=== PATIENT | female | born 1980 | race Caucasian/White ===

== ENCOUNTER 2016-05-31 13:14 | Emergency (ER) | payer MEDICAID ==
[~2016-05-31] VITALS: Ht 160 cm; Wt 49.9 kg
[2016-05-31 13:40] VITALS: BP 118/76
[2016-05-31] MEDS ORDERED: Ketorolac 30mg Inj IM ONE (14:00)
[2016-05-31 14:13] LABS: APPEARANCE,URINE SLIGHTLY CLOUDY; KETONES,URINE NEGATIVE (NEGATIVE); LEUKOCYTE ESTERASE ,URINE 3+ (NEGATIVE); NITRITE,URINE POSITIVE (NEGATIVE); PH,URINE 6 (4.5-8.0); PROTEIN,URINE 2+ (NEGATIVE); UROBILINOGEN,URINE 1 MG/DL (0.0-1.0)
[2016-05-31 14:23] LABS: BACTERIA,URINE MANY /HPF; SQUAMOUS EPITHELIAL CELL,UR FEW /LPF (NONE/OCC); WBC,URINE 60-80 /HPF (0 - 2)
[2016-05-31] MEDS ORDERED: CEPHALEXIN500 MG ORAL (14:39)
[2016-05-31] MEDS ORDERED: IBUPROFEN600 MG ORAL (14:41)
[2016-05-31] MEDS ORDERED: TRAMADOL HCL50 MG ORAL (14:41)
[2016-05-31 14:45] VITALS: BP 118/76
[2016-05-31] MEDS ORDERED: NKM (14:47)
--- NOTE | 2016-05-31 21:45 | Emergency Room Report ---
History of Present Illness General Chief Complaint: Pain Source: Patient (JEREMIAH YOUSSEF) Present Illness HPI The patient is a 35 old female presenting with left flank pain which began 5 days prior. The patient also admits to dysuria and increased urinary frequency. The patient states that she has had a kidney stone in the past which feels similar to this. Pain is described as a 10 out of 10 sharp sensation of the left flank and lower midabdomen. Pain does not radiate. Pain worse with touch and movement. The patient denies other symptoms including nausea, vomiting, fever, chills (JEREMIAH YOUSSEF.Derik) Allergies: Coded Allergies: PENICILLINS (Verified Allergy, Severe, Shortness of Breath, 05/31/16) Patient History Past Medical History: see triage record Pertinent Family History: none Last Menstrual Period: last week Now: No Reviewed Nursing Documentation: PMH: Agreed, PSxH: Agreed (JEREMIAH YOUSSEF) Nursing Documentation-PMH Past Medical History: No History, Except For Hx Neurological Problems: Yes - migraines (JEREMIAH YOUSSEF) Review of Systems All Other Systems: negative except mentioned in HPI (JEREMIAH YOUSSEF) Physical Exam Vital Signs Date Time Temp Pulse Resp B/P Pulse Ox O2 Delivery O2 Flow Rate FiO2 05/31/16 13:39 98.8 107 18 118/76 98 Room Air Sp02 EP Interpretation: reviewed, normal General Appearance: alert, GCS 15, non-toxic, mild distress Head: normocephalic, atraumatic Eyes: bilateral eye PERRL, bilateral eye normal inspection ENT: hearing grossly normal, normal pharynx, no angioedema, normal voice Respiratory: chest non-tender, lungs clear, normal breath sounds, speaking full sentences Cardiovascular #1: regular rate, rhythm, no edema Gastrointestinal: normal bowel sounds, soft, non-distended, no guarding, no rebound, tenderness - suprapubic Genitourinary: normal inspection, CVA tenderness (L) Musculoskeletal: back normal, gait/station normal, normal range of motion, non- tender Neurologic: alert, oriented x3, responsive, motor strength/tone normal, sensory intact, speech normal Psychiatric: judgement/insight normal, memory normal, mood/affect normal, no suicidal/homicidal ideation Skin: normal color, no rash, warm/dry, well hydrated Lymphatic: no adenopathy (JEREMIAH YOUSSEF) Medical Decision Making PA Attestation Dr. Slater is my supervising physician. Patient management was discussed with my supervising physician (JEREMIAH YOUSSEF) Diagnostic Impression: Primary Impression: Pyelonephritis ER Course The patient is a 35 old female presenting with left flank pain which began 5 days prior. Differential diagnosis considered but not limited to: UTI, vaginitis, pyelonephritis, pyelonephrosis, PID, ectopic Physical exam: The patient is tachycardic and in mild distress. Afebrile Abdomen is soft. Normal bowel sounds. There is tenderness to palpation over suprapubic region only. There is left-sided CVA tenderness Urinalysis is consistent with urinary tract infection The patient is given Toradol for pain The patient is discharged home with a prescription for tramadol and Keflex. ER precautions are given (JEREMIAH YOUSSEF.AReddy) Labs Test 05/31/16 14:05 Urine Color Yellow Urine Appearance Slightly cloudy Urine pH 6 (4.5-8.0) Urine Specific [place] 1.020 (1.005-1.035) Urine Protein 2+ (NEGATIVE) Urine Glucose (UA) Negative (NEGATIVE) Urine Ketones Negative (NEGATIVE) Urine Occult Blood 4+ (NEGATIVE) Urine Nitrite Positive (NEGATIVE) Urine Bilirubin Negative (NEGATIVE) Urine Urobilinogen 1 MG/DL (0.0-1.0) Urine Leukocyte Esterase 3+ (NEGATIVE) Urine RBC 5-10 /HPF (0 - 2) Urine WBC 60-80 /HPF (0 - 2) Urine Squamous Epithelial Cells Few /LPF (NONE/OCC) Urine Bacteria Many /HPF (NONE) Urine HCG, Qualitative Negative (Bridger Slater M.D.) Last Vital Signs Date Time Temp Pulse Resp B/P Pulse Ox O2 Delivery O2 Flow Rate FiO2 05/31/16 14:45 98.8 18 118/76 98 Room Air 05/31/16 13:40 107 Status: improved (JEREMIAH YOUSSEF P.A.) Disposition: HOME, SELF-CARE Condition: Improved Scripts Tramadol Hcl* (ULTRAM*) 50 Mg Tablet 50 MG ORAL Q6H Y for For Pain, #10 TAB 0 Refills Prov: JEREMIAH YOUSSEF.A. 05/31/16 Ibuprofen* (MOTRIN*) 600 Mg Tablet 600 MG ORAL Q8H Y for For Pain, #30 TAB 0 Refills Prov: SHADEANJEREMIAH P.A. 05/31/16 Cephalexin* (KEFLEX*) 500 Mg Capsule 500 MG ORAL EVERY 6 HOURS, #28 CAP Prov: JEREMIAH YOUSSEF P.A. 05/31/16 Patient Instructions: Pyelonephritis, Adult Additional Instructions: I discussed my findings with the patient. All questions and concerns have been answered. Treatment and medication compliance have been addressed. I advised the patient that they need to follow up with PMD in 3-5 days. Return to ED if symptoms worsen, new symptoms arise, or if needed for any reason. Patient verbalized understanding of discharge instructions. JEREMIAH YOUSSEF May 31, 2016 21:45 Bridger Slater M.D. Jun 03, 2016 02:29
== END 2016-05-31 14:45 | disposition home or self-care (01) ==
LOC: EMR 14:17
DX: N12 Tubulo-interstitial nephritis, not specified as acute or chronic (principal); Z88.0 Allergy status to penicillin
CPT/HCPCS: 81003; 81025; 87086; 87181; 96372; 99284; J1885